=== PATIENT | female | born 1940 | race Caucasian/White ===

== ENCOUNTER 2017-01-11 11:22 | Inpatient (IN) | payer MEDICARE, OTHER ==
[~2017-01-11 11:22] MED LIST: BENICAR HCT 40-1 TAB; CALCIUM 600 +1 EA10 PO; CO Q-10100 M2 PO; COUMADIN2 M1 PO; COUMADIN2 MG; GLUCOSAMINE CH1 EA13 PO; GLUCOSAMINE/CHO1 TAB; HYZAAR 50-12.51 EACH PO; LOPRESSOR100 M1 PO; NORCO 5/325 TAB1 TAB PO; OMEGA 3 1,0001 EAC1 PO; PACERONE100 MG; TOPROL XL100 MG; TYLENOL500 MG; VITAMIN B COMP1 EAC1 PO; ZOCOR20 M1 PO; [UNRECOGNIZED DRUG - CODE]
[2017-01-11] MEDS ORDERED: TRIAMCINOLONE A15 G2 TP (11:36)
[2017-01-11] MEDS ORDERED: MAXZIDE 37.5 M1 EAC1 PO (11:36)
[2017-01-11] MEDS ORDERED: FEOSOL325 M1 PO (11:37)
[2017-01-11] MEDS ORDERED: PROTONIX40 M2 PO (11:37)
[2017-01-11] MEDS ORDERED: LEVAQUIN500 M1 PO (11:38)
[2017-01-11] MEDS ORDERED: TYLENOL325 M2 PO (12:15)
[2017-01-11] MEDS ORDERED: COLACE100 M1 PO (12:16)
[2017-01-11 13:43] LABS: URINE APPEARANCE CLEAR; URINE BILIRUBIN NEGATIVE (NEG); URINE BLOOD SMALL (NEG); URINE COLOR YELLOW; URINE GLUCOSE (UA) NEGATIVE (NEG); URINE KETONE NEGATIVE (NEG); URINE LEUKOCYTE ESTERASE POSITIVE (NEG); URINE NITRITE POSITIVE (NEG); URINE PH 6.5 (5.0-8.0); URINE PROTEIN MODERATE (NEG)
[2017-01-11 14:00] LABS: URINE RBC RARE /[HPF] (0-5); URINE WBC 80-100 /[HPF] (0-5)
[2017-01-11 14:01] LABS: URINE BACTERIA 3+
[2017-01-11 14:04] LABS: BASO % 0.4 % (0-2); EOS % 3.1 % (0-7); EOSINOPHIL ABSOLUTE COUNT 0.3 tho/cmm (0.0-0.7); IMMATURE GRANULOCYTES ABSOLUTE 0.01 tho/cmm (0-0.03); IMMATURE GRANULOCYTES PERCENT 0.1 % (0-0.3); LYMPH % 12.7 % (20-45); MCH (MEAN CORPUSCULAR HGB) 29.5 pg (28.0-32.0); MCHC MEAN CORPUSCULAR HGB CONC 32.3 % (32.0-36.0); MCV (MEAN CELL VOLUME) 91.4 fl (82.0-96.0); MEAN PLATELET VOLUME 9.1 cmc (9.4-12.4); MONO % 12.7 % (0-12); NEUTROPHIL ABSOLUTE COUNT 5.8 tho/cmm (1.6-8.0); NEUTROPHIL-AUTOMATED 5.8 tho/cmm (1.6-8.0); PLATELET COUNT 192 tho/cmm (150-450); RED BLOOD COUNT 3.39 mil/cmm (4.00-5.20); RED CELL DISTRIBUTION WIDTH 17.7 % (12.4-16.4); WHITE BLOOD COUNT 8.1 tho/cmm (4.0-10.0)
[2017-01-11 14:32] LABS: IRON 188 ug/dl (37-170); IRON BINDING CAPACITY 450 ug/dl (250-450)
[2017-01-11 14:37] LABS: ALB/GLOB RATIO 0.9 (0.8-2.0); ALBUMIN 3.9 g/dl (3.5-5.0); ALKALINE PHOSPHATASE 90 U/L (33-138); ALT/SGPT 17 U/L (12-78); ANION GAP 16 mmol/L (0-20); AST/SGOT 25 U/L (10-40); BILIRUBIN,TOTAL 1.3 mg/dl (0-1.5); BLOOD UREA NITROGEN 35 mg/dl (6-24); CARBON DIOXIDE-VENOUS 24 mmol/L (22-32); CHLORIDE 107 mmol/l (96-110); CREATININE 1.93 mg/dl (0.50-1.10); GLUCOSE 100 mg/dL (70-110); POTASSIUM 4.5 mmol/L (3.7-5.1); SODIUM 142 mmol/L (135-145); eGFR VALUE FOR BLACK 28 mL/Min
[2017-01-11 14:42] LABS: TSH-THYROID STIMULATING HORM. 5.78 uIU/ml (0.40-3.80)
[2017-01-11 19:18] LABS: URINE TOTAL PROTEIN-RANDOM 44.8 mg/dl (<11.8)
[2017-01-12 04:19] LABS: BASO % 0.3 % (0-2); EOSINOPHIL ABSOLUTE COUNT 0.2 tho/cmm (0.0-0.7); HCT-HEMATOCRIT 28.1 % (34.0-49.0); HGB-HEMOGLOBIN 8.9 gm/dl (12.0-15.5); IMMATURE GRANULOCYTES ABSOLUTE 0.02 tho/cmm (0-0.03); IMMATURE GRANULOCYTES PERCENT 0.3 % (0-0.3); LYMPH % 16.7 % (20-45); MCH (MEAN CORPUSCULAR HGB) 28.9 pg (28.0-32.0); MCHC MEAN CORPUSCULAR HGB CONC 31.7 % (32.0-36.0); MCV (MEAN CELL VOLUME) 91.2 fl (82.0-96.0); MEAN PLATELET VOLUME 9.4 cmc (9.4-12.4); MONO % 17.9 % (0-12); NEUTROPHIL ABSOLUTE COUNT 3.5 tho/cmm (1.6-8.0); NEUTROPHIL-AUTOMATED 3.5 tho/cmm (1.6-8.0); NEUTROPHILS % 60.8 % (40-80); PLATELET COUNT 154 tho/cmm (150-450); RED BLOOD COUNT 3.08 mil/cmm (4.00-5.20); RED CELL DISTRIBUTION WIDTH 17.7 % (12.4-16.4); WHITE BLOOD COUNT 5.8 tho/cmm (4.0-10.0)
[2017-01-12 04:45] LABS: ANION GAP 13 mmol/L (0-20); BLOOD UREA NITROGEN 31 mg/dl (6-24); CALCIUM 9.1 mg/dl (8.5-10.5); CARBON DIOXIDE-VENOUS 23 mmol/L (22-32); CHLORIDE 109 mmol/l (96-110); CREATININE 1.75 mg/dl (0.50-1.10); GLUCOSE 135 mg/dL (70-110); POTASSIUM 4.3 mmol/L (3.7-5.1); SODIUM 141 mmol/L (135-145); eGFR VALUE FOR BLACK 32 mL/Min
[2017-01-13 06:59] LABS: ALBUMIN 3.2 g/dl (3.5-5.0); ANION GAP 14 mmol/L (0-20); BLOOD UREA NITROGEN 25 mg/dl (6-24); CALCIUM 9.5 mg/dl (8.5-10.5); CARBON DIOXIDE-VENOUS 25 mmol/L (22-32); CHLORIDE 107 mmol/l (96-110); CREATININE 1.79 mg/dl (0.50-1.10); GLUCOSE 89 mg/dL (70-110); MAGNESIUM 1.6 mg/dl (1.8-2.6); PHOSPHOROUS 3.1 mg/dl (2.5-4.9); POTASSIUM 3.8 mmol/L (3.7-5.1); SODIUM 142 mmol/L (135-145); eGFR VALUE FOR BLACK 31 mL/Min
[2017-01-14 04:55] LABS: HCT-HEMATOCRIT 27.7 % (34.0-49.0); HGB-HEMOGLOBIN 8.8 gm/dl (12.0-15.5); MCV (MEAN CELL VOLUME) 91.4 fl (82.0-96.0); RED CELL DISTRIBUTION WIDTH 18.3 % (12.4-16.4)
[2017-01-14 05:01] LABS: ANION GAP 11 mmol/L (0-20); BLOOD UREA NITROGEN 23 mg/dl (6-24); CALCIUM 9.2 mg/dl (8.5-10.5); CARBON DIOXIDE-VENOUS 28 mmol/L (22-32); CHLORIDE 106 mmol/l (96-110); CREATININE 1.79 mg/dl (0.50-1.10); GLUCOSE 88 mg/dL (70-110); MAGNESIUM 2.1 mg/dl (1.8-2.6); POTASSIUM 3.5 mmol/L (3.7-5.1); SODIUM 141 mmol/L (135-145); eGFR VALUE FOR BLACK 31 mL/Min
[2017-01-15 05:10] LABS: HCT-HEMATOCRIT 28.2 % (34.0-49.0); HGB-HEMOGLOBIN 8.9 gm/dl (12.0-15.5); RED CELL DISTRIBUTION WIDTH 18.2 % (12.4-16.4)
[2017-01-15 05:19] LABS: ANION GAP 12 mmol/L (0-20); BLOOD UREA NITROGEN 23 mg/dl (6-24); CALCIUM 9.2 mg/dl (8.5-10.5); CARBON DIOXIDE-VENOUS 30 mmol/L (22-32); CHLORIDE 103 mmol/l (96-110); CREATININE 1.73 mg/dl (0.50-1.10); GLUCOSE 98 mg/dL (70-110); POTASSIUM 3.1 mmol/L (3.7-5.1); SODIUM 142 mmol/L (135-145); eGFR VALUE FOR BLACK 32 mL/Min
[2017-01-16 04:21] LABS: BASO % 0.3 % (0-2); EOS % 3.9 % (0-7); EOSINOPHIL ABSOLUTE COUNT 0.3 tho/cmm (0.0-0.7); HCT-HEMATOCRIT 27.4 % (34.0-49.0); HGB-HEMOGLOBIN 8.9 gm/dl (12.0-15.5); IMMATURE GRANULOCYTES ABSOLUTE 0.02 tho/cmm (0-0.03); IMMATURE GRANULOCYTES PERCENT 0.3 % (0-0.3); LYMPH % 18.8 % (20-45); LYMPH ABSOLUTE COUNT 1.3 tho/cmm (0.8-4.5); MCH (MEAN CORPUSCULAR HGB) 28.6 pg (28.0-32.0); MCHC MEAN CORPUSCULAR HGB CONC 32.5 % (32.0-36.0); MCV (MEAN CELL VOLUME) 88.1 fl (82.0-96.0); MEAN PLATELET VOLUME 9.3 cmc (9.4-12.4); MONOCYTE ABSOLUTE COUNT 1.4 tho/cmm (0.0-1.2); NEUTROPHILS % 56.7 % (40-80); PLATELET COUNT 126 tho/cmm (150-450); RED BLOOD COUNT 3.11 mil/cmm (4.00-5.20); RED CELL DISTRIBUTION WIDTH 17.7 % (12.4-16.4)
[2017-01-16 04:45] LABS: ANION GAP 15 mmol/L (0-20); BLOOD UREA NITROGEN 22 mg/dl (6-24); CARBON DIOXIDE-VENOUS 31 mmol/L (22-32); CHLORIDE 98 mmol/l (96-110); CREATININE 1.73 mg/dl (0.50-1.10); GLUCOSE 85 mg/dL (70-110); POTASSIUM 3.1 mmol/L (3.7-5.1); SODIUM 141 mmol/L (135-145); eGFR VALUE FOR BLACK 32 mL/Min
[2017-01-16] MEDS ORDERED: LEVAQUIN250 M3 PO (10:40)
[2017-01-16] MEDS ORDERED: CLARITIN10 M6 PO (10:40)
[2017-01-16] MEDS ORDERED: K-TAB ER20 ME1 PO (10:41)
[2017-01-16] MEDS ORDERED: LASIX40 M1 PO (10:42)
[2017-01-16] MEDS ORDERED: CARAFATE1 GM/10 M1 PO (10:42)
[2017-01-16] MEDS ORDERED: SYNTHROID50 MC1 PO (10:43)
[2017-01-16] MEDS ORDERED: NYAMYC15 GM TP (15:46)
== END 2017-01-16 16:45 | DRG 381 ==
LOC: PCUA 11:22 → 5WE 01-13 05:30
PROVIDERS: Family Medicine; Internal Medicine Nephrology; Physician Assistant; ADMIT Family Medicine
PROC: 0DB28ZX Excision of Middle Esophagus, Via Natural or Artificial Opening Endoscopic, Diagnostic (ICD-10-PCS; principal; 2017-01-11)
PROC: 0DB58ZX Excision of Esophagus, Via Natural or Artificial Opening Endoscopic, Diagnostic (ICD-10-PCS; 2017-01-11)
PROC: 0DB68ZX Excision of Stomach, Via Natural or Artificial Opening Endoscopic, Diagnostic (ICD-10-PCS; 2017-01-11)
PROC: 05HC33Z Insertion of Infusion Device into Left Basilic Vein, Percutaneous Approach (ICD-10-PCS; 2017-01-11)
DX: K22.11 Ulcer of esophagus with bleeding (principal); N17.9 Acute kidney failure, unspecified; D69.6 Thrombocytopenia, unspecified; I27.2 Other secondary pulmonary hypertension; K29.01 Acute gastritis with bleeding; N18.3 Chronic kidney disease, stage 3 (moderate); I50.30 Unspecified diastolic (congestive) heart failure; I13.0 Hypertensive heart and chronic kidney disease with heart failure and stage 1 through stage 4 chronic kidney disease, or unspecified chronic kidney disease; N39.0 Urinary tract infection, site not specified; Z68.41 Body mass index [BMI] 40.0-44.9, adult; I48.2 Chronic atrial fibrillation; I07.1 Rheumatic tricuspid insufficiency; D64.9 Anemia, unspecified; G47.33 Obstructive sleep apnea (adult) (pediatric); K57.90 Diverticulosis of intestine, part unspecified, without perforation or abscess without bleeding; M85.80 Other specified disorders of bone density and structure, unspecified site; E78.00 Pure hypercholesterolemia, unspecified; J30.9 Allergic rhinitis, unspecified; N35.9 Urethral stricture, unspecified; L30.8 Other specified dermatitis; E87.6 Hypokalemia; E66.9 Obesity, unspecified; Z86.73 Personal history of transient ischemic attack (TIA), and cerebral infarction without residual deficits; H43.392 Other vitreous opacities, left eye; M19.90 Unspecified osteoarthritis, unspecified site; Z88.2 Allergy status to sulfonamides; K59.00 Constipation, unspecified; I25.10 Atherosclerotic heart disease of native coronary artery without angina pectoris; N31.9 Neuromuscular dysfunction of bladder, unspecified; G62.9 Polyneuropathy, unspecified; J98.4 Other disorders of lung; R12 Heartburn; E87.70 Fluid overload, unspecified
CPT/HCPCS: C1751; C9113; J1940; J1956; J3475; J3480; J7050; J7121